=== PATIENT | female | born 1990 | race Caucasian/White ===

== ENCOUNTER 2017-03-19 14:50 | Emergency (ER) | payer MEDICAID ==
[~2017-03-19] VITALS: Ht 165.1 cm; Wt 85.4 kg
[2017-03-19 14:54] VITALS: Ht 165.1 cm; Wt 85.4 kg
[2017-03-19] MEDS ORDERED: IBUP-1542 PO (15:01)
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
== END 2017-03-19 15:00 | disposition home or self-care (01) ==
LOC: FTE 14:50 → E/R 15:00
DX: S16.1XXA Strain of muscle, fascia and tendon at neck level, initial encounter (principal); V43.52XA Car driver injured in collision with other type car in traffic accident, initial encounter
CPT/HCPCS: 99283

== ENCOUNTER 2018-12-13 16:02 | Emergency (ER) | payer BC, MEDICAID ==
[~2018-12-13 16:02] MED LIST: IBUP-1542 PO
== END 2018-12-13 17:01 | disposition left against medical advice (07) ==
LOC: E/R 16:02
DX: Z53.21 Procedure and treatment not carried out due to patient leaving prior to being seen by health care provider (principal)